=== PATIENT | female | born 1995 | race Caucasian/White ===

== ENCOUNTER 2018-01-15 00:30 | Observation (INO) | payer SELFPAY ==
[~2018-01-15] VITALS: Ht 160 cm; Wt 81.6 kg
[2018-01-15] MEDS ORDERED: ONDANSETRON HCL 4 MG/2 ML VIAL IV ONE (01:00)
[2018-01-15 01:26] LABS: Basophils # (auto) 0.1 uL; Basophils % (auto) 0.6 % (0.0-2.0); Eosinophils # (auto) 0.2 uL; Eosinophils % (auto) 1.9 % (0.0-7.0); Hematocrit 44.3 % (36.0-46.0); Lymphocytes # (auto) 1.8 uL; Lymphocytes % (auto) 14.7 % (10.0-50.0); Mean Corpuscular Hemoglobin 29.7 pg (28.0-32.0); Mean Corpuscular Hgb Conc. 33.8 g/dL (32.0-36.0); Mean Corpuscular Volume 87.8 fL (80.0-100.0); Monocytes # (auto) 1.2 uL; Monocytes % (auto) 9.5 % (0.0-12.0); Neutrophils % (auto) 73.3 % (37.0-80.0); Platelet Count (auto) 333 10^3/uL (140-450); Red Blood Cells 5.04 10^6/uL (4.0-5.20); Red Cell Distribution Width 13.3 % (11.8-14.3); White Blood Cell 12.3 10^3/uL (4.4-10.8)
[2018-01-15 01:44] LABS: BUN/Creatinine Ratio 12.5; Calcium 9.1 mg/dL (8.5-10.1); Potassium 3.1 mmol/L (3.5-5.1)
[2018-01-15 01:47] LABS: Bilirubin, Total 0.4 mg/dL (0.2-1.0); Total Protein 8.4 g/dL (6.4-8.2)
[2018-01-15] MEDS ORDERED: POTASSIUM CHL 20 Meq TABLET PO ONE (02:00)
[2018-01-15] MEDS ORDERED: ACETAMINOPHEN 500 MG TAB PO ONE (02:00)
[2018-01-15 02:43] LABS: Urine Bacteria NONE SEEN /hpf (None Seen); Urine Blood Negative /uL (Negative); Urine Mucus FEW (None Seen); Urine WBC 7 /hpf (0 - 5)
[2018-01-15 02:52] LABS: Alcohol, Urine < 3.0 mg/dL (0-5); Amphetamine Screen, Urine NEGATIVE (NEGATIVE); Barbiturate Scree,Urine NEGATIVE (NEGATIVE); Benzodiazephine Screen, Urine NEGATIVE (NEGATIVE); Cannabinoid Screen, Urine POSITIVE (NEGATIVE); Cocaine Screen, Urine NEGATIVE (NEGATIVE); Opiate Scree,Urine NEGATIVE (NEGATIVE); Phencyclidine Screen, Urine NEGATIVE (NEGATIVE)
[2018-01-15 03:10] VITALS: BP 111/61
== END 2018-01-15 04:07 | disposition home or self-care (01) | DRG 101 ==
LOC: ER 00:30 → OVERFLOW 00:31 → ER 04:07
PROVIDERS: ADMIT Emergency Medicine; ATTEND Emergency Medicine
DX: G40.909 Epilepsy, unspecified, not intractable, without status epilepticus (principal); F19.10 Other psychoactive substance abuse, uncomplicated
CPT/HCPCS: 36415; 70450; 80053; 80307; 80320; 81001; 85025; 96374; 99285; G0378; J2405; J7030